=== PATIENT | male | born 1960 | race Caucasian/White ===

== ENCOUNTER 2017-06-24 12:34 | Inpatient (IN) | payer OTHER ==
[~2017-06-24] VITALS: Ht 185.4 cm; Wt 78.1 kg
[2017-06-24 12:42] VITALS: Ht 185.4 cm; Wt 78.1 kg
[2017-06-24] MEDS ORDERED: HUMALOG100 U/ML SC (12:48)
[2017-06-24] MEDS ORDERED: ENALAPRIL MALEAT5 MG PO ×2 (12:48)
[2017-06-24] MEDS ORDERED: METFORMIN ER500 M1 PO (12:49)
[2017-06-24] MEDS ORDERED: ALDACTONE50 MG PO (12:49)
[2017-06-24] MEDS ORDERED: TRAMADOL HCL50 MG PO (12:49)
[2017-06-24] MEDS ORDERED: LANTI SQ (12:50)
[2017-06-24] MEDS ORDERED: PRILOSEC OTC20 M1 PO (12:53)
[2017-06-24] MEDS ORDERED: PROTONIX40 MG PO (12:53)
[2017-06-24] MEDS ORDERED: GABAPENTIN600 M1 PO (12:53)
[2017-06-24] MEDS ORDERED: ALBUTEROL1.25 MG/3 NEB (12:54)
[2017-06-24] MEDS ORDERED: VITAMIN-D1000 IU PO (12:54)
[2017-06-24 14:00] LABS: UA SPECIFIC GRAVITY 1.025 (1.005-1.035); microscopic required? YES; urine erythrocyte NEGATIVE (NEGATIVE)
[2017-06-24 14:16] LABS: BASOPHIL % 0.6 % (0-2)
[2017-06-24 14:17] LABS: PLATELET COUNT 71 x10^3mcL (130-400); RED CELL DISTRIBUTION WIDTH 14.8 % (11.5-14.5)
[2017-06-24 14:23] LABS: CALCIUM 8.2 mg/dL (8.5-10.1); CARBON DIOXIDE 26.1 mmol/L (21-32); CHLORIDE SERUM 99 mmol/L (98-107); GFR1 > 60 mL/min; GLUCOSE SERUM 220 mg/dL (74-106); POTASSIUM SERUM 4.4 mmol/L (3.5-5.1); SODIUM SERUM 132 mmol/L (136-145)
[2017-06-24 14:27] LABS: ALKALINE PHOSPHATASE 147 U/L (46-116); ALT/SGPT 48 U/L (16-63); AST/SGOT 66 U/L (15-37); BILIRUBIN TOTAL 1.9 mg/dL (0.20-1.00); MAGNESIUM 1.7 mg/dL (1.8-2.4); PHOSPHOROUS 3.1 mg/dL (2.5-4.9)
[2017-06-24 14:30] LABS: ALBUMIN 2.1 g/dL (3.4-5.0); CHOLESTEROL 102 mg/dL (<200); HDL CHOLESTEROL 72 mg/dL (40-60); TOTAL PROTEIN, SERUM 5.6 g/dL (6.4-8.2)
[2017-06-24 16:40] VITALS: BP 117/64
[2017-06-24 16:40] LABS: FREE T4 1.12 ng/dL (0.76-1.46)
[2017-06-24 16:43] LABS: FREE THYROXINE INDEX 1.7 ug/dL (1.4-4.5); T4(THYROXINE) 4.2 ug/dL (4.7-13.3)
[2017-06-24] MEDS ORDERED: PROPRANOLOL HCL10 MG PO (17:15)
[2017-06-24] MEDS ORDERED: LACTULOSE10 GM/152 PO (17:16)
[2017-06-24] MEDS ORDERED: LASIX40 MG PO (17:16)
[2017-06-24] MEDS ORDERED: MECLIZINE HYD12.5 MG PO (17:17)
[2017-06-24 17:36] LABS: AMPHETAMINE QUAL UR NONE DETECTED (NEG <=1000)
[2017-06-24 18:18] LABS: RED BLOOD CELLS 3.68 M/mm3 (4.52-5.90)
[2017-06-24 18:26] LABS: IRON 157 ug/dL (65-170)
[2017-06-24 18:33] LABS: TOTAL IRON BINDING CAPACITY 193 ug/dL (250-450)
[2017-06-24 20:49] VITALS: BP 99/59
[2017-06-25 05:46] VITALS: BP 90/53
[2017-06-25 06:30] VITALS: BP 93/62
[2017-06-25 07:53] LABS: RED CELL DISTRIBUTION WIDTH 14.5 % (11.5-14.5)
[2017-06-25 07:54] LABS: PLATELET COUNT 51 x10^3mcL (130-400)
[2017-06-25 08:59] LABS: CARBON DIOXIDE 25.2 mmol/L (21-32); CHLORIDE SERUM 100 mmol/L (98-107); CREATININE SERUM 1.1 mg/dL (0.7-1.3); GFR1 > 60 mL/min; GLUCOSE SERUM 356 mg/dL (74-106); MAGNESIUM 2.1 mg/dL (1.8-2.4); PHOSPHOROUS 3.5 mg/dL (2.5-4.9); POTASSIUM SERUM 4.8 mmol/L (3.5-5.1); SODIUM SERUM 129 mmol/L (136-145)
[2017-06-25 09:01] VITALS: BP 111/63
[2017-06-25 13:38] VITALS: BP 116/60
[2017-06-25 16:54] VITALS: BP 107/61
[2017-06-25 20:52] VITALS: BP 92/52
[2017-06-26 05:56] VITALS: BP 109/65
[2017-06-26 06:17] LABS: BASOPHIL % 1.2 % (0-2); RED CELL DISTRIBUTION WIDTH 14.2 % (11.5-14.5)
[2017-06-26 06:27] LABS: CALCIUM 8.1 mg/dL (8.5-10.1); CARBON DIOXIDE 24.2 mmol/L (21-32); CHLORIDE SERUM 103 mmol/L (98-107); CREATININE SERUM 1.1 mg/dL (0.7-1.3); GFR1 > 60 mL/min; GLUCOSE SERUM 307 mg/dL (74-106); MAGNESIUM 1.8 mg/dL (1.8-2.4); PHOSPHOROUS 3.9 mg/dL (2.5-4.9); POTASSIUM SERUM 4.7 mmol/L (3.5-5.1); SODIUM SERUM 133 mmol/L (136-145)
[2017-06-26 07:21] LABS: PLATELET COUNT 50 x10^3mcL (130-400)
[2017-06-26 08:26] VITALS: BP 101/58
[2017-06-26 09:17] LABS: T3 TOTAL 0.65 ng/mL
[2017-06-26 13:42] VITALS: BP 114/66
[2017-06-26 17:13] VITALS: BP 124/77
[2017-06-26 19:30] VITALS: BP 106/64
[2017-06-27 06:07] VITALS: BP 105/57
[2017-06-27 06:30] LABS: RED CELL DISTRIBUTION WIDTH 14.4 % (11.5-14.5)
[2017-06-27 07:36] LABS: CALCIUM 8.3 mg/dL (8.5-10.1); CARBON DIOXIDE 23.3 mmol/L (21-32); CHLORIDE SERUM 102 mmol/L (98-107); GFR1 > 60 mL/min; GLUCOSE SERUM 408 mg/dL (74-106); POTASSIUM SERUM 5.2 mmol/L (3.5-5.1); SODIUM SERUM 128 mmol/L (136-145)
[2017-06-27 08:29] VITALS: BP 93/50
[2017-06-27 08:29] LABS: BAND NEUTROPHIL 2 % (0-10); SEGMENTED NEUTROPHILS 60 % (37-75)
[2017-06-27 08:30] LABS: ATYPICAL LYMPH 8 %; BASOPHIL 0 % (0-2); MONOCYTE 6 % (0-7); rbc morphology (normal/abnorm) ABNORMAL (NORMAL)
[2017-06-27 08:31] LABS: PLATELET MORPHOLOGY D
[2017-06-27 08:34] LABS: PLATELET COUNT 23 x10^3mcL (130-400)
[2017-06-27 12:34] VITALS: BP 111/58
== END 2017-06-27 15:28 | disposition left against medical advice (07) | DRG 279 ==
LOC: ED 12:34 → DU 15:27
PROVIDERS: Emergency Medicine; Family Medicine; Family Medicine Sports Medicine
DX: K72.00 Acute and subacute hepatic failure without coma (principal); N17.0 Acute kidney failure with tubular necrosis; E43 Unspecified severe protein-calorie malnutrition; D69.6 Thrombocytopenia, unspecified; K74.69 Other cirrhosis of liver; E11.65 Type 2 diabetes mellitus with hyperglycemia; E87.5 Hyperkalemia; E87.1 Hypo-osmolality and hyponatremia; E86.0 Dehydration; I10 Essential (primary) hypertension; B18.2 Chronic viral hepatitis C; F17.210 Nicotine dependence, cigarettes, uncomplicated; E03.9 Hypothyroidism, unspecified; D64.9 Anemia, unspecified; N50.89 Other specified disorders of the male genital organs; R74.0 Nonspecific elevation of levels of transaminase and lactic acid dehydrogenase [LDH]; Z53.21 Procedure and treatment not carried out due to patient leaving prior to being seen by health care provider; N39.0 Urinary tract infection, site not specified; Z84.89 Family history of other specified conditions; Z68.20 Body mass index [BMI] 20.0-20.9, adult
CPT/HCPCS: 82962; 83880; 84439; J0696; J1815; J1885; J2405; J3010; J3475; J7030; J8597; Q0092